=== PATIENT | male | born 1985 | race Native Hawaiian/Other Pacific Islander ===

== ENCOUNTER 2019-09-03 00:31 | Outpatient (CLI) | payer OTHER ==
[2019-09-03] MEDS ORDERED: TIZANIDINE HYDRO4 MG PO (02:45)
[2019-09-03] MEDS ORDERED: ADDERALL7.5 MG PO (02:46)
[2019-09-03] MEDS ORDERED: TOLT4CAP2 PO (02:48)
[2019-09-03] MEDS ORDERED: REMERON SOLTAB15 MG PO (02:48)
== END 2019-09-03 00:34 | disposition short-term general hospital (02) ==
LOC: AMB 00:31
DX: R41.82 Altered mental status, unspecified (principal); G82.20 Paraplegia, unspecified; R46.89 Other symptoms and signs involving appearance and behavior
CPT/HCPCS: A0425; A0429

== ENCOUNTER 2019-09-03 00:44 | Observation (INO) | payer OTHER ==
[~2019-09-03] VITALS: Ht 162.6 cm; Wt 83.1 kg
[2019-09-03] VITALS (10 sets, daily range): BP systolic 142–173; BP diastolic 87–120; TEMP 97.4–99.7; Ht 162.6 cm; Wt 83.1 kg
[2019-09-03 01:09] LABS: PLATELET COUNT 200 K/uL (142-355)
[2019-09-03 01:17] LABS: POTASSIUM 4.5 mmol/L (3.6-5.2)
[2019-09-03] MEDS ORDERED: TIZANIDINE HYDRO4 MG PO (02:45)
[2019-09-03] MEDS ORDERED: ADDERALL7.5 MG PO (02:46)
[2019-09-03] MEDS ORDERED: REMERON SOLTAB15 MG PO (02:48)
[2019-09-03] MEDS ORDERED: TOLT4CAP2 PO (02:48)
[2019-09-04 00:20] VITALS: BP 170/96; TEMP 98
[2019-09-04 04:00] VITALS: BP 134/72; TEMP 97.5
[2019-09-04 05:04] LABS: PLATELET COUNT 147 K/uL (142-355)
[2019-09-04 05:18] LABS: POTASSIUM 3.3 mmol/L (3.6-5.2)
[2019-09-04 08:00] VITALS: BP 170/120; TEMP 98
== END 2019-09-04 11:35 | disposition home or self-care (01) ==
LOC: ED 00:44 → MED/SURG 02:27
PROVIDERS: Family Medicine; ADMIT Hospitalist
DX: N39.0 Urinary tract infection, site not specified (principal); E83.42 Hypomagnesemia; E87.6 Hypokalemia; E86.0 Dehydration; R00.0 Tachycardia, unspecified; R41.0 Disorientation, unspecified; F25.8 Other schizoaffective disorders; G82.20 Paraplegia, unspecified; M84.48XA Pathological fracture, other site, initial encounter for fracture; R44.3 Hallucinations, unspecified; F90.9 Attention-deficit hyperactivity disorder, unspecified type
CPT/HCPCS: 36415; 51702; 80048; 80053; 80307; 80320; 81000; 82550; 82553; 83605; 83735; 83880; 84100; 84439; 84443; 84484; 85027; 85610; 85730; 87040; 87899; 93005; 94640; 94664; 94760; 96360; 96361; 96365; 96372; 96374; 96375; 99220; 99284; G0378; J0696; J1650; J1940; J1956; J2270; J3490